=== PATIENT | male | born 1970 | race African-American/Black ===

== ENCOUNTER 2020-03-01 08:31 | Outpatient (CLI) | payer OTHER, SELFPAY ==
[2020-03-01 08:48] LABS: Basophils Absolute Auto 0.07 K/mm3 (0.00-0.10); Basophils Percent Auto 0.5 % (0.0-1.0); Eosinophils Absolute Auto 0.31 K/mm3 (0.02-0.50); Eosinophils Percent Auto 2.4 % (1.0-6.0); Hematocrit 43.6 % (40.0-54.0); Hemoglobin 13.6 g/dL (14.0-18.0); Immature Granulocyte Absolute 0.06 K/mm3 (0.00-0.00); Immature Granulocyte Percent A 0.5 % (0.0-0.0); Lymphocytes Absolute Auto 3.63 K/mm3 (1.10-4.50); Lymphocytes Percent Auto 28.1 % (18.0-42.0); Mean Corpuscular HGB Conc 31.2 g/dL (32.0-36.0); Mean Corpuscular Hemoglobin 27.5 pg (27.0-31.0); Mean Corpuscular Volume 88.1 fL (78.0-102.0); Mean Platelet Volume 9.4 fl (8.7-11.0); Monocytes Percent Auto 6.2 % (2.0-11.0); Neutrophils Percent Auto 62.3 % (50.0-70.0); Platelet Count Result 352 K/mm3 (150-420); Red Blood Count 4.95 M/mm3 (4.70-6.10); Red Cell Distribution Width 14.1 % (11.6-14.4); White Blood Count 12.9 K/mm3 (4.8-10.8)
[2020-03-01 09:56] LABS: Alanine Aminotransferase 24 U/L (16-63); Albumin Level 3.5 g/dL (3.4-5.0); Alkaline Phosphatase 59 U/L (46-116); Anion Gap 10.5 mmol/L (7-16); Aspartate Amino Transferase 13 U/L (15-37); Bilirubin,Total 0.5 mg/dL (0.00-1.00); Blood Urea Nitrogen 16 mg/dL (7-18); Calcium 8.7 mg/dL (8.5-10.1); Carbon Dioxide 29 mmol/L (21-32); Chloride 105 mmol/L (98-108); Cholesterol 147 mg/dL (0-200); Estimated Glomerular Filt Rate > 60; Glucose 116 mg/dL (70-99); HDL Direct 41 mg/dL (40-60); LDL Cholesterol Calculated 87 mg/dL (<130); Osmolality Calculated 292 mOsm/kg (285-295); Potassium 4.5 mmol/L (3.5-5.1); Sodium 140 mmol/L (136-145); Thyroid Stimulating Hormone 2.37 uIU/mL (0.36-3.74); Triglycerides 95 mg/dL (0-150); Vitamin B12 248 pg/mL (193-986)
[2020-03-03 10:35] LABS: Hemoglobin A1C 6.3 % (<5.7)
[2020-03-05 20:27] LABS: Vitamin D 25 Hydroxy 14 ng/mL (30-100)
[2020-03-06 16:17] LABS: Testosterone Free 15.4 pg/mL (35.0-155.0); Testosterone Total 70 ng/dL (250-1100)
== END 2020-03-01 08:32 | disposition home or self-care (01) ==
LOC: CHSLAB 08:37
PROVIDERS: PCP Nurse Practitioner Family; Visit Provider Nurse Practitioner Family
DX: R79.89 Other specified abnormal findings of blood chemistry (principal); R53.83 Other fatigue; I10 Essential (primary) hypertension
CPT/HCPCS: 36415; 80053; 80061; 82306; 82607; 83036; 84402; 84403; 84443; 85025

== ENCOUNTER 2020-03-18 08:09 | Outpatient (CLI) | payer OTHER, SELFPAY ==
[2020-03-22 13:55] LABS: Testosterone Free 10.5 pg/mL (35.0-155.0); Testosterone Total 47 ng/dL (250-1100)
== END 2020-03-18 08:10 | disposition home or self-care (01) ==
LOC: CHSLAB 08:11
PROVIDERS: PCP Nurse Practitioner Family; Visit Provider Nurse Practitioner Family
DX: R79.89 Other specified abnormal findings of blood chemistry (principal)
CPT/HCPCS: 36415; 84402; 84403

== ENCOUNTER 2020-04-11 09:42 | Outpatient (CLI) | payer OTHER, SELFPAY ==
[2020-04-12 14:38] LABS: SARS-CoV-2 RNA PCR Positive
== END 2020-04-11 09:43 | disposition home or self-care (01) ==
LOC: CHSLAB 09:43
PROVIDERS: Nurse Practitioner Family; PCP Nurse Practitioner Family; Visit Provider Nurse Practitioner Family
DX: U07.1 COVID-19 (principal); R52 Pain, unspecified
CPT/HCPCS: 87635; C9803; U0003

== ENCOUNTER 2025-05-08 17:25 | Emergency (ER) | payer BC, SELFPAY ==
[2025-05-08 17:40] VITALS: BP 157/96; PULSE 86; RESP 16; TEMP 36.9; O2SAT 98
[2025-05-08 17:51] LABS: EDSTREPNEGPOS1 Negative (Negative)
--- NOTE | 2025-05-08 17:56 | ED_ITS ---
HPI - General Adult General Chief complaint: Upper Respiratory Infection Stated complaint: SORE THROAT Time Seen by Provider: 05/08/25 17:29 Source: patient Mode of arrival: ambulatory Limitations: no limitations History of Present Illness HPI narrative: Pt is a pleasant 54 y/o male presenting with c/o L. sided throat pain x 1 day. No known fevers, chills, or other constitutional sx. No concurrent URI sx. No known exposure to COVID, FLU, STREP, PNA. 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 NO additional complaints. Related Data Home Medications ?Medication ?Instructions ?Recorded ?Confirmed ?Last Taken ?Type semaglutide 0.25 mg or 0.5 mg (2 0.25 mg subcut WEEKLY 03/25/20 04/18/20 Unknown History mg/1.5 mL) subcutaneous pen injector (Ozempic) meloxicam 15 mg tablet mg 05/08/25 Unknown History metformin 500 mg tablet,extended mg PO 05/08/25 Unkno wn History release 24 hr testosterone cypionate 200 mg/mL mg 05/08/25 Unknown History intramuscular oil tirzepatide 10 mg/0.5 mL mg subcut 05/08/25 Unknown History subcutaneous pen injector (Mounjaro) Allergies Allergy/AdvReac Type Severity Reaction Status Date / Time No Known Allergies Allergy Verified 05/08/25 18:25 Review of Systems Review of Systems: CONSTITUTIONAL: Denies body aches, fever, chills, or sweats. EYES: Denies visual changes, redness, or discharge. ENT:Reports sore throat, Denies rhinorrhea, congestion or otalgia. CARDIOVASCULAR: Denies chest pain, palpitations, or edema. RESPIRATORY: Denies cough or dyspnea. GASTROINTESTINAL: Denies abdominal pain, nausea, vomiting, or diarrhea. GENITOURINARY: Denies dysuria or hematuria. SKIN: Denies rash, itching, or wounds. MUSCULOSKELETAL: Denies back pain, joint pain, or myalgia. NEUROLOGIC: Denies headache, numbness, tingling, or weakness. PSYCH: Denies depression or anxiety. All systems reviewed & are unremarkable except as noted in HPI and below PMFSH Past Medical History Medical History (Updated 05/08/25 @ 18:21 by Dread Skinner, KAITLYNN) Morbid obesity with BMI of 45.0-49.9, adult Low testosterone level in male Purulent drainage of both ears through ear tube Insomnia Surgical History Surgical History No history of previous surgery Family History Family History Father Diabetes mellitus Social History Social History Years smoked: 15 Smoking status: Former smoker Alcohol intake: never Substance use: never Substance use type: does not use Living arrangements: with family Additional living arrangements comments: Occupation/Education: occupation Additional occupation/education comments: relations Gender identity (if verbalized by the patient): Male Exam Narrative: GENERAL: Well-appearing, well-nourished, Morbidly obese, and in no acute distress. HEAD: Normocephalic, atraumatic. EYES: EOMI. No redness or drainage. Conjunctivae normal. ENT: Mucous membranes pink and moist. Nares clear. No rhinorrhea. TMs normal bilaterally. Tonsils are 3+ bilaterally with exudate, erythema. Uvula midline. No trismus. No evidence of odalis angina. NECK: Normal AROM. Supple. +anterior cervical lymphadenopathy. CHEST: No respiratory distress. Clear to auscultation. HEART: Regular rate and rhythm. No murmur appreciated. Normal peripheral pulses. EXTREMITIES: Normal range of motion. SKIN: Warm, dry, no rash. Capillary refill normal. Normal skin turgor. NEURO: No focal deficits. Alert and oriented x3. Gait steady. PSYCH: Normal affect. No signs of depression or anxiety. Course Course Emergency Course: PCN removed from allergy list as patient reports negative allergy test an as adult Level of Care: Express Care Visit Vital Signs Vital signs: Vital Signs Oxygen Delivery Room Air 05/08/25 17:35 Temperature 98.4 F 05/08/25 17:40 Pulse Rate 86 05/08/25 17:40 Respiratory Rate 16 05/08/25 17:40 Blood Pressure 157/96 H 05/08/25 17:40 Pulse Oximetry 98 05/08/25 17:40 Oxygen Delivery Room Air 05/08/25 17:35 Medical Decision Making MDM Narrative Medical decision making narrative: Discussed elevated blood pressure readings with patient and advised daily BP monitoring and f/u with PCP if persisting. Vital Signs Vital Signs: Vital Signs Oxygen Delivery Room Air 05/08/25 17:35 Temperature 98.4 F 05/08/25 17:40 Pulse Rate 86 05/08/25 17:40 Respiratory Rate 16 05/08/25 17:40 Blood Pressure 157/96 H 05/08/25 17:40 Pulse Oximetry 98 05/08/25 17:40 Oxygen Delivery Room Air 05/08/25 17:35 Lab Data Lab results reviewed: Yes I reviewed the patient's lab results. Labs: Lab Results 05/08/25 Range/Units 17:49 POC Grp A Strep Screen Negative (Negative) POC was actually positive for group a strep. Discharge Plan Discharge Clinical Impression: Pharyngitis due to group A beta hemolytic Streptococci, Hypertension Patient Disposition: Home Condition: Stable Instructions: Antibiotic Form, Strep Throat (DC) Additional Instructions: Go straight to ER should your symptoms become worse or should any new symptoms develop Patient Language: French Prescriptions: New cephalexin 500 mg capsule 500 mg PO Q12H Qty: 20 0RF No Action meloxicam 15 mg tablet testosterone cypionate 200 mg/mL oil metformin 500 mg tablet extended release 24 hr PO Mounjaro 10 mg/0.5 mL pen injector SUBCUT Ozempic 0.25 mg or 0.5 mg(2 mg/1.5 mL) pen injector 0.25 mg SUB-Q WEEKLY lisinopril 10 mg tablet 10 mg PO DAILY Qty: 90 2RF trazodone 50 mg tablet 50 mg PO DAILY PRN (Reason: insomnia) Qty: 30 1RF Rx Instructions: qHS ergocalciferol (vitamin D2) 1,250 mcg (50,000 unit) capsule 1,250 mcg PO WEEKLY Qty: 12 0RF sildenafil 50 mg tablet 50 mg PO DAILY PRN (Reason: sexual activity) Qty: 10 2RF Rx Instructions: administer 30 minutes to 4 hours before activity zolpidem [Ambien] 10 mg tablet 10 mg PO .QHS PRN (Reason: insomnia) Qty: 10 0RF Follow-up/Referrals: Maura,Darren Dunn MD [Primary Care Provider, Unknown] - 05/09/25 Time of Disposition: 17:58
== END 2025-05-08 18:27 | disposition home or self-care (01) ==
PROVIDERS: Emergency Provider Registered Nurse; PCP Family Medicine
DX: J02.0 Streptococcal pharyngitis (principal); I10 Essential (primary) hypertension; E66.01 Morbid (severe) obesity due to excess calories; Z68.43 Body mass index [BMI] 50.0-59.9, adult; Z87.891 Personal history of nicotine dependence
CPT/HCPCS: 87880; 99213; G0463